=== PATIENT | female | born 1945 | race Caucasian/White ===

== ENCOUNTER 2022-02-20 19:13 | Inpatient (IN) | payer MEDICARE, OTHER ==
[~2022-02-20] VITALS: Ht 167.6 cm; Wt 61.4 kg
[~2022-02-20 19:13] MED LIST: APIX5TAB3 PO; ATOR-2 PO; FENO160T30 PO; FOLI1TAB27 PO; LEVO75TA7 PO; LISI20TA28 PO; METF-900 PO; SOTA80TA73 PO; thiamine tablet PO
[2022-02-20 19:57] LABS: BASOPHILS % (AUTO) 0.7 % (0-1); EOSINOPHILS # (AUTO) 0.1 X10'3 (0-0.9); EOSINOPHILS % (AUTO) 1.1 % (0-6); HEMATOCRIT 30.8 % (35.0-45.0); HEMOGLOBIN 10.7 g/dl (12.0-16.0); LYMPHOCYTES # (AUTO) 1.2 X10'3 (1.1-4.8); LYMPHOCYTES % (AUTO) 17.8 % (21-51); MEAN CORPUSCULAR HEMOGLOBIN 30.6 PG (27.0-31.0); MEAN CORPUSCULAR HGB CONC 34.7 g/dL (33.0-36.5); MEAN PLATELET VOLUME 9.8 FL (7.4-10.4); MONOCYTES # (AUTO) 0.7 X10'3 (0-0.9); MONOCYTES % (AUTO) 10.3 % (2-12); NEUTROPHILS # (AUTO) 4.9 X10'3 (1.8-7.7); NEUTROPHILS % (AUTO) 70.1 % (42-75); PLATELET COUNT 227 X10'3 (140-440); RED CELL DISTRIBUTION WIDTH 16.4 % (11.5-14.5); WHITE BLOOD COUNT 6.9 X10'3 (4.5-11.0)
[2022-02-20 20:21] LABS: ALANINE AMINOTRANSFERASE 53 U/L (12-78); ALBUMIN 3.5 G/DL (3.4-5.0); ALKALINE PHOSPHATASE 66 IU/L (46-116); ANION GAP 9 (8-16); ASPARTATE AMINO TRANSFERASE 67 U/L (10-37); BILIRUBIN,TOTAL 0.9 MG/DL (0.1-1.0); BLOOD UREA NITROGEN 17 MG/DL (7-18); BUN/CREATININE RATIO 11.8 (6.6-38.0); CHLORIDE 90 MMOL/L (99-107); CREATININE 1.44 MG/DL (0.40-0.90); GLUCOSE 116 MG/DL (70-104); SODIUM 135 MMOL/L (135-145); TOTAL CARBON DIOXIDE 35.6 MMOL/L (24-32); eGFR 35 ML/MIN
[2022-02-20] MEDS: potassium CL 10mEq/100ml bag 100 ML IV SCH ×2 (20:53→22:13)
[2022-02-20] MEDS ORDERED: potassium Cl 20 mEq SR tablet PO STA (21:23)
[2022-02-20] MEDS ORDERED: magnesium 2GM in 50ml NS 50 ML IV PRN (22:00)
[2022-02-20] MEDS ORDERED: HYDROcodone/acetaminophen 10/325mg tab PO PRN (22:00)
[2022-02-20] MEDS ORDERED: ondansetron/PF 4mg/2ml inj IV PRN (22:00)
[2022-02-20] MEDS ORDERED: potassium CL 10mEq/100ml bag 100 ML IV PRN (22:00)
[2022-02-20] MEDS ORDERED: POTASSIUM BICARB 20meq eff tab 20 MEQ TABLET.EFF PO PRN (22:00)
[2022-02-20] MEDS ORDERED: acetaminophen 325mg tablet PO PRN ×2 (22:00)
[2022-02-20] MEDS ORDERED: magnesium 4gm in 100ml NS 100 ML IV PRN (22:00)
[2022-02-20] MEDS ORDERED: magnesium hydroxide 30ml (MOM) UD suspension PO PRN (22:00)
[2022-02-20] MEDS ORDERED: HYDROcodone/acetaminophen 5mg/325mg tablet PO PRN (22:00)
[2022-02-20] MEDS ORDERED: PERFLUTREN PROTEIN-A MICROSPHR (Optison) 0.22 MG/ML 3ML VIAL IV ONE (22:00)
[2022-02-20] MEDS ORDERED: mag hydrox/Alum hydrox/simeth 30ml oral suspension PO PRN (22:00)
[2022-02-20] MEDS ORDERED: PERFLUTREN PROTEIN-A MICROSPHR (Optison) 0.22 MG/ML 3ML VIAL IV PRN (22:15)
--- NOTE | 2022-02-20 22:34 | NUR ---
PAGER ID: [phone] MESSAGE: Prema Funez in ER 6, Critical value Mg 1.0
[2022-02-20] MEDS ORDERED: RIVA20TA PO (22:44)
[2022-02-20] MEDS ORDERED: LISI40TA13 PO (22:44)
[2022-02-20] MEDS ORDERED: CYAN10007 IM (22:44)
[2022-02-21 00:56] VITALS: BP 148/61
[2022-02-21] MEDS: POTASSIUM BICARB 20meq eff tab 20 MEQ TABLET.EFF PO PRN ×3 (02:03→12:15)
[2022-02-21 06:00] VITALS: BP 151/49
[2022-02-21 06:14] LABS: BASOPHILS % (AUTO) 0.7 % (0-1); EOSINOPHILS # (AUTO) 0.1 X10'3 (0-0.9); EOSINOPHILS % (AUTO) 1.6 % (0-6); HEMATOCRIT 28.6 % (35.0-45.0); HEMOGLOBIN 9.9 g/dl (12.0-16.0); LYMPHOCYTES # (AUTO) 1.7 X10'3 (1.1-4.8); MEAN CORPUSCULAR HEMOGLOBIN 30.7 PG (27.0-31.0); MEAN CORPUSCULAR HGB CONC 34.6 g/dL (33.0-36.5); MEAN CORPUSCULAR VOLUME 88.8 FL (78-98); MEAN PLATELET VOLUME 9.6 FL (7.4-10.4); MONOCYTES # (AUTO) 0.8 X10'3 (0-0.9); MONOCYTES % (AUTO) 10.8 % (2-12); NEUTROPHILS # (AUTO) 4.5 X10'3 (1.8-7.7); NEUTROPHILS % (AUTO) 62.9 % (42-75); PLATELET COUNT 183 X10'3 (140-440); RED BLOOD COUNT 3.22 X10'6 (4.20-5.60); RED CELL DISTRIBUTION WIDTH 16.1 % (11.5-14.5); WHITE BLOOD COUNT 7.1 X10'3 (4.5-11.0)
--- NOTE | 2022-02-21 06:30 | NUR ---
Patient in room PCU 3026. I have received report from REDDY Bautista and had the opportunity to ask questions and assume patient care.
[2022-02-21 06:49] LABS: ALANINE AMINOTRANSFERASE 45 U/L (12-78); ALBUMIN 3.1 G/DL (3.4-5.0); ALKALINE PHOSPHATASE 57 IU/L (46-116); ANION GAP 9 (8-16); ASPARTATE AMINO TRANSFERASE 61 U/L (10-37); BILIRUBIN,TOTAL 0.9 MG/DL (0.1-1.0); BLOOD UREA NITROGEN 17 MG/DL (7-18); BUN/CREATININE RATIO 12.5 (6.6-38.0); CALCIUM 8.7 MG/DL (8.5-10.1); CHLORIDE 94 MMOL/L (99-107); CREATININE 1.36 MG/DL (0.40-0.90); GLUCOSE 90 MG/DL (70-104); MAGNESIUM 2.4 MG/DL (1.5-2.4); SODIUM 138 MMOL/L (135-145); TOTAL CARBON DIOXIDE 35.1 MMOL/L (24-32); TOTAL PROTEIN 6.1 G/DL (6.4-8.2); eGFR 38 ML/MIN
[2022-02-21 06:55] LABS: POTASSIUM 2.8 MMOL/L (3.5-5.1)
[2022-02-21] MEDS ORDERED: K and/or MAG REPLACEMENT MC SCH (08:00)
[2022-02-21] MEDS ORDERED: lisinopril 20mg tablet PO SCH (08:00)
[2022-02-21] MEDS ORDERED: folic acid 1mg tablet PO SCH (08:00)
[2022-02-21] MEDS ORDERED: atorvastatin 20mg tablet PO SCH (08:00)
[2022-02-21] MEDS ORDERED: rivaroxaban 20mg tablet PO SCH (08:00)
[2022-02-21] MEDS ORDERED: sotalol HCl 40mg (1/2 tablet) PO SCH (08:00)
[2022-02-21] MEDS ORDERED: docusate sod 100mg capsule PO SCH (08:00)
[2022-02-21 09:57] VITALS: BP_SYST 136; BP_SYST 142; BP_SYST 150; BP_DIAS 43; BP_DIAS 48; BP_DIAS 57
--- NOTE | 2022-02-21 09:59 | NUR ---
Page to Dr Mendez PAGER ID: [phone] MESSAGE: Nely DAWSON [id number] tessa Funez [id number] ortho vs negative, pt ambulated 300 [address] in hallway and is at baseline for activity - no c/o dizziness
[2022-02-21 11:00] VITALS: BP 115/37
--- NOTE | 2022-02-21 14:19 | NUR ---
Pt discharged to home at 1245, with all belongings in private vehicle, accompanied by son. Discharge instructions and medications reviewed. Pt instructed to follow up with PCP in 1-2 week and to return to ED for any new or worsening symptoms. Pt states understanding and willingness to comply with all discharge instructions. IV DC'd, cannula intact. Pt escorted to front lobby via wheelchair by PCT.
[2022-02-21] MEDS ORDERED: enoxaparin 40mg/0.4ml syringe SQ SCH (20:00)
[2022-03-17] MEDS ORDERED: cyanocobalamin 1,000 mcg/ml inj IM SCH (06:00)
== END 2022-02-21 12:46 | disposition home or self-care (01) | DRG 641 ==
LOC: ER 19:14 → ED HOLD 22:09 → UNDOADMIN 22:28 → ED HOLD 22:28 → PCU 3S 02-21 00:23 → ED HOLD 02-21 00:23
PROVIDERS: ADMIT Family Medicine; ATTEND Internal Medicine
DX: E87.6 Hypokalemia (principal); E83.42 Hypomagnesemia; D64.9 Anemia, unspecified; E11.22 Type 2 diabetes mellitus with diabetic chronic kidney disease; N18.30 Chronic kidney disease, stage 3 unspecified; E78.00 Pure hypercholesterolemia, unspecified; I12.9 Hypertensive chronic kidney disease with stage 1 through stage 4 chronic kidney disease, or unspecified chronic kidney disease; E89.0 Postprocedural hypothyroidism; I48.0 Paroxysmal atrial fibrillation; Z79.01 Long term (current) use of anticoagulants; Z79.84 Long term (current) use of oral hypoglycemic drugs; Z79.890 Hormone replacement therapy; Z82.49 Family history of ischemic heart disease and other diseases of the circulatory system; Z79.899 Other long term (current) drug therapy
CPT/HCPCS: 36415; 71045; 80053; 83735; 83880; 84484; 85025; 87081; 93005; 93306; 96365; 96366; 99285; G0378; J3475; J3480; J7030; J7040